=== PATIENT | male | born 1990 | race Two or more races ===

== ENCOUNTER 2022-09-19 11:05 | Emergency (ER) | payer MEDICAID ==
[~2022-09-19] VITALS: Ht 177.8 cm; Wt 90.9 kg
[2022-09-19 11:08] VITALS: BP 112/69
== END 2022-09-19 12:27 ==
LOC: ER 11:06
DX: F15.20 Other stimulant dependence, uncomplicated; Z98.890 Other specified postprocedural states
CPT/HCPCS: 74176; 99284